=== PATIENT | male | born 1960 ===

== ENCOUNTER 2019-03-26 21:29 | Emergency (ER) | payer OTHER ==
[2019-03-26 21:42] VITALS: BP 152/96
--- NOTE | 2019-03-26 21:49 | UC ---
Skin Complaint HPI - HPI Summary HPI Summary: 58 yo with 2 tick bites over the past week; removed the second one this evening with concern about the degree of induration and erythema. The initial bite on the left thigh has a faint ovoid blush 5 cm in diameter. Feels well. Hx of Lyme disease in the past treated at the early disseminated phase, with rash, high fever and joint pains. - History of Current Complaint Time Seen by Provider: 03/26/19 21:39 Stated Complaint: TICK Hx Obtained From: Patient Onset/Duration: Sudden Onset Skin Exposure Onset/Duration: Hours Ago - bite 2, Days Ago - bite 1 Timing: Constant Onset Severity: Mild Current Severity: Mild Aggravating Factor(s): Nothing Alleviating Factor(s): Nothing Associated Signs & Symptoms: Positive: Negative - Allergy/Home Medications Allergies/Adverse Reactions: Allergies Allergy/AdvReac Type Severity Reaction Status Date / Time No Known Allergies Allergy Verified 03/26/19 21:41 PMH/Surg Hx/FS Hx/Imm Hx Previously Healthy: Yes - Surgical History Surgical History: Yes Surgery Procedure, Year, and Place: Torn ACL /cartilage in knees in past - Family History Known Family History: Positive: Non-Contributory - Social History Occupation: Employed Full-time Lives: With Family Substance Use Type: None Review of Systems All Other Systems Reviewed And Are Negative: Yes Constitutional: Positive: Negative Skin: Positive: Rash Eyes: Positive: Negative ENT: Positive: Negative Respiratory: Positive: Negative Cardiovascular: Positive: Other - no hx of hypertension, more typically is 110- 120 systolic. Gastrointestinal: Positive: Negative Musculoskeletal: Positive: Other: - has aches and paind from old injuries-- knees and shoulders Is Patient Immunocompromised?: No Physical Exam Triage Information Reviewed: Yes Appearance: Well-Appearing, No Pain Distress ENT: Positive: Normal ENT inspection Respiratory: Positive: Lungs clear, Normal breath sounds Cardiovascular: Positive: RRR, No Murmur Musculoskeletal Exam: Normal Neurological: Positive: Alert, Muscle Tone Normal Psychological Exam: Normal Skin Exam: Other - right upper mediolateral thigh with deep erythematous rash 1 cm, with surrounding erythema of 3 cm. Left medial thigh with ovoid patch of erythema 5 cm x 3 cm. Course/Dx - Course Course Of Treatment: Rash left thigh with erythema consistent with early EM rash, and second bite is has surrounding erythema more pronounced than typical recent bite. Will treat with one week of doxycycline for erythema migrans. - Differential Diagnoses - Skin Complaint Differential Diagnoses: Tick Born Illness - Diagnoses Provider Diagnosis: Erythema migrans (Lyme disease) Discharge ED - Sign-Out/Discharge Documenting (check all that apply): Patient Departure All imaging exams completed and their final reports reviewed: No Studies - Discharge Plan Condition: Good Disposition: HOME Prescriptions: DOXYcycline CAP(*) [DOXYcycline 100MG CAP(*)] 100 mg PO BID #14 cap Patient Education Materials: Lyme Disease (ED) Referrals: Peggy Michelle MD [Primary Care Provider] - Additional Instructions: The size of the redness surrounding both recent bites is consistent with erythema migrans rash. A seven day course of doxycycline has been prescribed. This can be taken with food, but do no use dairy products ithin 2 hous of the dose. - Billing Disposition and Condition Condition: GOOD Disposition: Home
[2019-03-26] MEDS ORDERED: DOXYcycline CAP(*) 100 MG PO ONE (21:54)
== END 2019-03-26 22:04 | disposition home or self-care (01) ==
LOC: UCEAST 21:29
DX: A69.20 Lyme disease, unspecified (principal)
CPT/HCPCS: 99212; A9270-GY; G0463

== ENCOUNTER 2019-07-29 19:54 | Emergency (ER) | payer OTHER ==
--- OUTSIDE RECORDS SUMMARY | 2019-07-29 20:00 | XMS REPORT | Continuity of Care Document ---
:1960 External Reference #:[id number] Author Name Peggy Michelle MD Address [address] [place] [id number] Care Team Providers Name Role Phone Peggy Michelle MD FACP - Care Team Information [employer] [phone] Internal Medicine Problems Active Problems Provider Date Difficulty breathing Peggy Michelle MD Onset: 10/02/2016 Social History Type Date Description Comments Sex Unknown ETOH Use Denies alcohol use Tobacco Use Start: Unknown Patient has never smoked Grew up around heavy smokers Exercise Type/Frequency Exercises regularly Allergies, Adverse Reactions, Alerts Description No Known Drug Allergies Medications Description No Active Medications Immunizations CPT Code Status Date Vaccine Lot # [id number] Given 03/20/2019 Influenza Vaccine Quadrivalent Preser/Antibiotic Free [place] Use 12067 Given 04/01/2018 Tdap-Tetanus, Diphtheria Toxoids/Acellular [id number] Pertussis Vaccine 7+ [id number] Given 03/25/2018 Influenza Vaccine Quadrivalent Preser/Antibiotic [id number] Free Im Use Vital Signs Date Vital Result Comment 07/02/2019 3:18pm Body Temperature 98.6 F O2 % BldC Oximetry 97 % Heart Rate 61 /min BP Systolic 155 mmHg BP Diastolic 85 mmHg BP Systolic Recheck 150 mmHg BP Diastolic Recheck 85 mmHg BMI (Body Mass Index) 26.5 kg/m2 Weight 168.00 lb Height 66.75 inches 5'6.75" 03/25/2018 11:14am Body Temperature 98.6 F O2 % BldC Oximetry 95 % Heart Rate 60 /min BP Systolic 120 mmHg BP Diastolic 80 mmHg BMI (Body Mass Index) 27.2 kg/m2 Weight 170.00 lb Height 66.25 inches 5'6.25" Results Test Acquired Date Facility Test Result H/L Range Note CBC No Diff 06/12/2019 [facility] White Blood 5.1 10^3/uL Normal 3.5-10.8 [place] [address] Count [phone] Red Blood Count 5.22 10^6/uL Normal 4.18-5.48 Hemoglobin 15.1 g/dL Normal 14.0-18.0 Hematocrit 43 % Normal 42-52 Mean Corpuscular Volume 83 fL Normal 80-94 Mean Corpuscular Hemoglobin 29 pg Normal 27-31 Mean Corpuscular HGB Conc 35 g/dL Normal 31-36 Red Cell Distribution Width 13 % Normal 10-15 Platelet Count 204 10^3/uL Normal 150-450 Mean Platelet Volume 8.4 fL Normal 7.4-10.4 Basic Metabolic 06/12/2019 [facility] Sodium 140 mmol/L Normal 135-145 [place] [address] [phone] Potassium 4.5 mmol/L Normal 3.5-5.0 Chloride 105 mmol/L Normal 101-111 Co2 Carbon Dioxide 29 mmol/L Normal 22-32 Anion Gap 6 mmol/L Normal 2-11 Glucose 99 mg/dL Normal 70-100 Blood Urea Nitrogen 18 mg/dL Normal 6-24 Creatinine 1.04 mg/dL Normal 0.67-1.17 BUN/Creatinine Ratio 17.3 Normal 8-20 Calcium 9.3 mg/dL Normal 8.6-10.3 Egfr Non- 73.6 >60 Egfr 89.1 >60 1 Lipid Profile 06/12/2019 [facility] Triglycerides 183 mg/dL 2 (Trig/Chol/HDL) [place] [address] [phone] Cholesterol 190 mg/dL 3 HDL Cholesterol 36.5 mg/dL 4 LDL Cholesterol 117 mg/dL 5 1 Because ethnic data is not always readily available, this report includes an eGFR for both -Americans and non- Americans. The National Kidney Disease Education Program (NKDEP) does not endorse the use of the MDRD equation for patients that are not between the ages of 18 and 70, are , have extremes of body size, muscle mass, or nutritional status, or are non- or non-. According to the National Kidney Foundation, irrespective of diagnosis, the stage of the disease is based on the level of kidney function: Stage Description GFR(mL/min/1.73 m(2)) 1 Kidney damage with normal or decreased GFR 90 2 Kidney damage with mild decrease in GFR 60-89 3 Moderate decrease in GFR 30-59 4 Severe decrease in GFR 15-29 5 Kidney failure <15 (or dialysis) 2 Desirable: <150 Borderline High: 150-199 High: 200-499 Very High: >500 3 Desirable: <200 Borderline High: 200-239 High: >239 4 Low: <40 Desirable: 40-60 High: >60 5 Desirable: <100 Near Optimal: 100-129 Borderline High: 130-159 High: 160-189 Very High: >189 Procedures Description No Information Available Medical Devices Description No Information Available Encounters Description No Information Available Assessments Date Code Description Provider 07/02/2019 Z00.01 Encounter for general adult medical Peggy Michelle MD examination with abnormal findings Plan of Treatment Future Appointment(s):07/06/2020 9:00 am - Peggy Michelle MD at [facility]7/02/2019 - Peggy Michelle MDZ00.01 Encounter for general adult medical examination with abnormal findingsComments:Age, sex and risk appropriate preventive care recommendations discussed with patient. Physical findings discussed in detail.Patient verbalized understanding. Advised to reduce use of coffee.Advised to monitor BP and report status.AllNew Medication: No Active Medications - Functional Status Functional Condition Comment Date Status Glasses Active Mental Status Description No Information Available Referrals Description No Information Available
[2019-07-29 20:12] VITALS: BP 119/83
[2019-07-29] MEDS ORDERED: Lidocaine 1% MPF ** 5 ML VIAL INJ ONE (21:18)
--- NOTE | 2019-07-29 22:17 | UC ---
Hand/Wrist HPI - HPI Summary HPI Summary: SUSTAINED A RIGHT FIFTH FINGER DISLOCATION DURING JUDO EARLIER TODAY. NO NUMBNESS. - History Of Current Complaint Chief Complaint: UCUpperExtremity Stated Complaint: DISLOCATED FINGER Time Seen by Provider: 07/29/19 20:47 Hx Obtained From: Patient Onset/Duration: Sudden Onset, Lasting Hours, Still Present Severity Initially: Moderate Severity Currently: Moderate Pain Intensity: 2 Pain Scale Used: 0-10 Numeric Character Of Pain: Aching Aggravating Factor(s): Movement Alleviating Factor(s): Rest, Ice Associated Signs And Symptoms: Positive: Swelling. Negative: Numbness/Tingling Related History: Dominant Hand Right - Allergies/Home Medications Allergies/Adverse Reactions: Allergies Allergy/AdvReac Type Severity Reaction Status Date / Time No Known Allergies Allergy Verified 07/29/19 20:10 Home Medications: Home Medications NK [No Home Medications Reported] 07/29/19 [History Confirmed 07/29/19] PMH/Surg Hx/FS Hx/Imm Hx Previously Healthy: Yes - Surgical History Surgical History: Yes Surgery Procedure, Year, and Place: Torn ACL /cartilage in knees in past - Family History Known Family History: Positive: Non-Contributory - Social History Alcohol Use: None Substance Use Type: None Smoking Status (MU): Never Smoked Tobacco Review of Systems All Other Systems Reviewed And Are Negative: Yes Constitutional: Positive: Negative Respiratory: Positive: Negative Cardiovascular: Positive: Negative Gastrointestinal: Positive: Negative Musculoskeletal: Positive: Arthralgia, Decreased ROM, Edema Physical Exam Triage Information Reviewed: Yes Appearance: Well-Appearing, No Pain Distress, Well-Nourished Vital Signs: Initial Vital Signs Temp 97.7 F 07/29/19 20:03 Pulse 73 07/29/19 20:03 Resp 12 07/29/19 20:03 BP 119/83 07/29/19 20:03 Pulse Ox 97 07/29/19 20:03 Vital Signs Reviewed: Yes Eyes: Positive: Conjunctiva Clear ENT: Positive: Hearing grossly normal Neck: Positive: Supple Respiratory: Positive: No respiratory distress, No accessory muscle use Cardiovascular: Positive: Pulses Normal Abdomen Description: Positive: Soft Musculoskeletal: Positive: ROM Limited @ - RIGHT 5TH FINGER, Edema @ - RIGHT 5TH FINGER Neurological: Positive: Alert Psychological: Positive: Age Appropriate Behavior Skin: Negative: Rashes Diagnostics - Radiology RIGHT 5TH FINGER XRAYS Radiology Interpretation Completed By: ED Physician Summary of Radiographic Findings: 1. INITIAL - ANTERIOR DISLOCATION PIP JOINT. NO FX. 2. POST REDUCTION - RESTORED ALIGNMENT. NO FX Hand/Wrist Course/Dx - Course Course Of Treatment: TIME OUT COMPLETE. DIGITAL BLOCK DONE. RIGHT FIFTH FINGER DISLOCATION REDUCED WITH THE ASSISTANCE OF IAN GONGORA NP. POST-REDUCTION FILMS SHOW JOINT BACK IN ALIGNMENT. NO FRACTURES IDENTIFIED. OFFICIAL RADIOLOGY READ IS PENDING. FINGER SPLINTED. PATIENT ADVISED TO KEEP IT SPLINTED STRAIGHT UNTIL SEEN BY ORTHOPEDICS EARLY NEXT WEEK. OTC ANTI-INFLAMMATORIES NEEDED FOR DISCOMFORT. REST, ICE, ELEVATE. NEUROVASCULARLY INTACT POST-REDUCTION. - Differential Dx/Diagnosis Provider Diagnosis: Dislocation of right little finger Discharge ED - Sign-Out/Discharge Documenting (check all that apply): Patient Departure All imaging exams completed and their final reports reviewed: No - Discharge Plan Condition: Stable Disposition: HOME Patient Education Materials: Finger Dislocation (ED) Referrals: James Wharton MD [Medical Doctor] - 1 Week Peggy Michelle MD [Primary Care Provider] - If Needed Additional Instructions: YOUR FINGER WAS SUCCESSFULLY REDUCED HERE IN THE URGENT CARE. KEEP IT SPLINTED STRAIGHT AT ALL TIMES UNTIL SEEN BY ORTHOPEDICS. CALL ORTHOPEDICS FIRST THING IN THE MORNING TO SCHEDULE AN APPOINTMENT FOR EARLY NEXT WEEK. GO TO THE ER WITHOUT FAIL IF YOUR FINGER GOES NUMB, CHANGES COLOR, GETS COLD OR DEVELOPS INCREASED PAIN OR ANY OTHER CONCERNING SYMPTOMS. - Billing Disposition and Condition Condition: STABLE Disposition: Home
== END 2019-07-29 22:20 | disposition home or self-care (01) ==
LOC: UCEAST 19:54
DX: S63.256A Unspecified dislocation of right little finger, initial encounter (principal); X58.XXXA Exposure to other specified factors, initial encounter; Y92.9 Unspecified place or not applicable
CPT/HCPCS: 26770; 73140; 99212; G0463